=== PATIENT | male | born 1965 | race Caucasian/White ===

== ENCOUNTER 2018-05-30 17:25 | Emergency (ER) | payer SELFPAY ==
[~2018-05-30] VITALS: Ht 177.8 cm; Wt 68.0 kg
[2018-05-30] MEDS ORDERED: ACETAMINOPHEN 500 MG TAB (TYLENOL) PO STA (19:32)
[2018-05-30] MEDS ORDERED: NS IV 1000 ML 1,000 ML IV SCH (19:45)
--- NOTE | 2018-05-30 19:45 | Diagnostic Imaging Report ---
EXAMINATION: PA and lateral chest. INDICATION: Headache, neck and back pain. COMPARISON: No comparison available. FINDINGS: Lungs demonstrate no focal alveolar infiltrate or consolidation. There is no effusion. There is no pneumothorax. Heart size and mediastinal contours appear appropriate. Pulmonary vascularity appears normal. There is a dense well-circumscribed nodule in the left lung measuring 6 mm compatible with a granuloma. No acute or suspicious osseous abnormality evident. IMPRESSION: 1. No radiographic evidence of an acute cardiopulmonary process. Dictated by: Dictated on workstation # [id number]
[2018-05-30 19:47] LABS: BASOPHILS % (AUTO) 1 % (0-10); EOSINOPHILS # (AUTO) 0.1 10^3/uL (0.0-0.3); EOSINOPHILS % (AUTO) 1 % (0-10); HEMATOCRIT 49 % (40-54); HEMOGLOBIN 16.4 G/DL (13.3-17.7); LYMPHOCYTES # (AUTO) 1.9 X 10^3 (1.0-4.0); LYMPHOCYTES % (AUTO) 22 % (12-44); MEAN CORPUSCULAR HEMOGLOBIN 30 PG (25-34); MEAN CORPUSCULAR HGB CONC 30 G/DL (32-36); MEAN CORPUSCULAR VOLUME 89 FL (80-99); MEAN PLATELET VOLUME 10.3 FL (7.4-10.4); MONOCYTES % (AUTO) 11 % (0-12); NEUTROPHILS # (AUTO) 5.8 X 10^3 (1.8-7.8); NEUTROPHILS % (AUTO) 66 % (42-75); PLATELET COUNT 252 10^3/uL (130-400); RED CELL DISTRIBUTION WIDTH 13.7 % (10.0-14.5); WHITE BLOOD COUNT 8.7 10^3/uL (4.3-11.0)
[2018-05-30 20:27] LABS: BUN/CREATININE RATIO 13; CARBON DIOXIDE 28 MMOL/L (21-32); CHLORIDE 98 MMOL/L (98-107); CREATININE SERUM 0.88 MG/DL (0.60-1.30); GFR ESTIMATED > 60; POTASSIUM 4.5 MMOL/L (3.6-5.0); SODIUM 137 MMOL/L (135-145)
[2018-05-30 20:28] LABS: ALANINE AMINOTRANSFERASE 25 U/L (0-55); ALKALINE PHOSPHATASE 97 U/L (40-136); BILIRUBIN,TOTAL 0.4 MG/DL (0.1-1.0); CALCIUM 9.1 MG/DL (8.5-10.1); GLUCOSE 124 MG/DL (70-105); TOTAL PROTEIN 7.6 GM/DL (6.4-8.2)
--- NOTE | 2018-05-30 20:39 | NUR ---
Doctor in room with the patient.
[2018-05-30 20:42] LABS: BAND NEUTROPHILS 6 %; BASOPHILS % (MANUAL) 1 %; EOSINOPHILS % (MANUAL) 0 %; LYMPHOCYTES % (MANUAL) 34 %; MONOCYTES % (MANUAL) 8 %; NEUTROPHILS % (MANUAL) 51 %
[2018-05-30 20:43] LABS: RBC MORPH NORMAL
[2018-05-30] MEDS ORDERED: cefTRIAXone FOR IV USE 1,000 MG in WATER (STERILE) FOR INJECTION 10 ML IV STA (20:48)
[2018-05-30] MEDS ORDERED: VANCOMYCIN INJECTION 1,000 MG in NS (IVPB) 250 ML IV STA (20:48)
[2018-05-30] MEDS ORDERED: WATER (STERILE) FOR INJECTION 10 ML ONE (21:02)
[2018-05-30] MEDS ORDERED: ASPIRIN 81 MG CHEW (CHILDREN'S ASA) ONE (21:02)
[2018-05-30] MEDS ORDERED: NS (IVPB) 250 ML ONE (21:02)
[2018-05-30] MEDS ORDERED: VANCOMYCIN 1000 MG/VIAL ONE (21:02)
[2018-05-30] MEDS ORDERED: cefTRIAXone 1,000 MG IV (ROCEPHIN) VIAL ONE (21:02)
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
[2018-05-30] MEDS: NS IV 1000 ML 1,000 ML IV SCH ×2 (21:28→22:00)
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
[2018-05-31 05:19] VITALS: BP 100/70
[2018-05-31] MEDS ORDERED: ASPIRIN 81 MG CHEW (CHILDREN'S ASA) PO SCH (09:00)
== END 2018-05-30 23:00 | disposition short-term general hospital (02) ==
LOC: ER FS 17:27
DX: R51 Headache (principal); M54.2 Cervicalgia; G03.9 Meningitis, unspecified; F17.210 Nicotine dependence, cigarettes, uncomplicated; Z87.19 Personal history of other diseases of the digestive system
CPT/HCPCS: 36415; 70450; 71046; 80053; 83605; 84484; 85007; 85027; 87804; 93005; 96361; 96365; 96375